=== PATIENT | female | born 1955 | race African-American/Black ===

== ENCOUNTER 2017-05-24 14:44 | Emergency (ER) | payer OTHER ==
[2017-05-24 15:48] LABS: #Lymphocytes 1.4 thou/uL (1.20-3.40); #Monocytes 0.4 thou/uL (0.11-0.59); #Neutrophils 8.4 thou/uL (1.40-6.50); %Basophils 0.4 % (0.0-1.0); %Eosinophils 0.1 % (0.0-10.0); %Lymphocytes 13.5 % (21.0-51.0); %Monocytes 4.1 % (0.0-10.0); %Neutrophils 81.8 % (42.0-75.0); Hemoglobin 13.4 g/dL (12.0-16.0); Mean Corpuscular HGB CONC 34.5 g/dL (32.0-36.0); Mean Corpuscular Hemoglobin 30.2 pg (27.0-31.0); Mean Corpuscular Volume 87.5 fl (81.0-99.0); Mean Platelet Volume 8.5 fL (7.4-10.4); Platelet Count 277 thou/uL (130-400); RBC Distribution Width 12.3 % (11.5-14.5); Red Blood Cell (RBC) Count 4.45 mill/uL (4.20-5.40); White Blood Cell (WBC) Count 10.3 thou/uL (4.8-10.8)
--- NOTE | 2017-05-24 16:04 | RAD ---
2 VIEWS CHEST: Date: 05/24/17 PROVIDED CLINICAL HISTORY: Fever. FINDINGS: Cardiac and mediastinal silhouette is within normal limits. Lungs appear clear. No pleural fluid or p neumothorax apparent. IMPRESSION: No evidence for an acute cardiopulmonary process. POS: [facility]
[2017-05-24 16:12] LABS: Bilirubin Negative (Negative); Blood, Urine Negative (Negative); Clarity CLEAR (Clear); Glucose, Urine (Dipstick) Negative (Negative); Leukocyte Negative (Negative); Nitrite Negative (Negative); Protein, Urine (Dipstick) Negative (Neg-Trace); Specific Gravity, Urine 1.007 (1.002-1.036)
[2017-05-24 16:12] LABS: ALT (SGPT) 147 U/L (8-55); AST (SGOT) 93 U/L (5-34); Albumin 3.9 g/dL (3.4-4.8); Alkaline Phosphatase 68 U/L (40-150); Anion Gap 12 mmol/L (10-20); BUN (Urea Nitrogen) 8 mg/dL (9.8-20.1); Bilirubin, Total 0.8 mg/dL (0.2-1.2); CK (CPK) 28 U/L (29-168); Calc. Creatinine Clearance 0 mL/min (70-130); Calcium 9.7 mg/dL (7.8-10.44); Carbon Dioxide 25 mmol/L (23-31); Chloride 100 mmol/L (98-107); Estimated GFR-MDRD Greater than 90; Globulin 3.5 g/dL (2.4-3.5); Glucose 183 mg/dL (80-115); Lipase 10 U/L (8-78); Potassium 3.4 mmol/L (3.5-5.1); Protein, Total 7.4 g/dL (6.0-8.3); Sodium 134 mmol/L (136-145)
[2017-05-24 16:22] LABS: CKMB 0.6 ng/mL (0-6.6); Troponin I Less than 0.010 ng/mL (< 0.028)
== END 2017-05-24 16:45 | disposition home or self-care (01) ==
LOC: ERS 14:44
DX: R50.9 Fever, unspecified (principal); Z86.73 Personal history of transient ischemic attack (TIA), and cerebral infarction without residual deficits; E11.9 Type 2 diabetes mellitus without complications; I10 Essential (primary) hypertension; Z87.891 Personal history of nicotine dependence; Z79.899 Other long term (current) drug therapy; Z79.4 Long term (current) use of insulin
CPT/HCPCS: 71046; 80053; 81003; 82553; 83605; 83690; 84484; 85025; 87086; 87804; 93005

== ENCOUNTER 2017-06-18 08:12 | Outpatient (CLI) | payer OTHER | END 2017-06-18 08:13 | disposition home or self-care (01) | LOC: BICULT 08:12 | PROVIDERS: ATTEND Family Medicine | DX: Z09 Encounter for follow-up examination after completed treatment for conditions other than malignant neoplasm (principal); Z86.19 Personal history of other infectious and parasitic diseases; K83.8 Other specified diseases of biliary tract; K82.8 Other specified diseases of gallbladder; E11.42 Type 2 diabetes mellitus with diabetic polyneuropathy; I10 Essential (primary) hypertension | CPT/HCPCS: 76700 ==

== ENCOUNTER 2017-07-14 08:15 | Outpatient (CLI) | payer OTHER ==
[2017-07-14 09:35] LABS: Estimated GFR-MDRD - POC Greater than 90
== END 2017-07-14 08:16 | disposition home or self-care (01) ==
LOC: BICMRI 08:15
PROVIDERS: ATTEND Family Medicine
DX: K83.8 Other specified diseases of biliary tract (principal); K82.8 Other specified diseases of gallbladder
CPT/HCPCS: 74183; 82565

== ENCOUNTER 2017-10-05 10:38 | Day surgery (SDC) | payer OTHER ==
[~2017-10-05 10:38] MED LIST: Glycopyrrolate 0.2 MG/ML 5 ML SYRINGE ONE; Lidocaine 1% PF 5 ML VIAL ONE; Ondansetron HCl/PF 4 MG/2 ML Vial ONE; PROPOFOL 200 MG/20 ML VIAL ONE
[2017-10-05] MEDS ORDERED: Iothalamate Meglumine 60% 50 ML VIAL FS ONE (12:32)
[2017-10-05] MEDS ORDERED: Midazolam HCl 2 mg/2 ml Vial ONE (13:21)
[2017-10-05] MEDS ORDERED: Fentanyl 100 MCG/2 ML VIAL ONE (13:22)
[2017-10-05] MEDS ORDERED: Indomethacin 50 MG SUPP ONE (13:23)
[2017-10-05] MEDS ORDERED: SUGAMMADEX SODIUM 500 MG/5 ML VIAL ONE (14:44)
[2017-10-05] MEDS ORDERED: Sodium Chloride 0.9% 10 ML ONE (14:55)
[2017-10-05] MEDS ORDERED: Promethazine HCl 25 MG/ML VIAL ONE (15:00)
--- NOTE | 2017-10-05 17:17 | OP ---
DATE OF PROCEDURE: 10/05/2017 GI ENDOSCOPY NOTE SURGEON: Devaughn Rojas M.D. SERVICE PLANNER SURGEON: None. PROCEDURE: Endoscopic retrograde cholangiopancreatography with biliary sphincterotomy and stone extr action. INDICATION: Choledocholithiasis based on ultrasound and MRCP imaging. MEDICATIONS: 1. See anesthesia record. 2. Indomethacin 100 mg per rectum. FINDINGS: After discussion of the risks, benefits and alternatives of the procedure, informed consen t was obtained and witnessed. Pre-endoscopic cardiopulmonary examination was satisfactory. Timeout was performed before sedation was achieved. Sedation was achieved with anesthesia assistance in the endoscopy unit. The patient was placed in the semi prone position on the fluoroscopy table, endotrac heally intubated and sedated. A Pentax adult side-viewing duodenum scope was advanced beyond the gifty th down the esophagus and beyond the stomach into the second portion of the duodenum. The ampulla wa s brought into view. The ampulla appeared normal. At this point, a triple lumen dome tip sphinctero tome and a 0.035 guidewire were used to selectively cannulate the common bile duct. The wire was pas sed up into the left intrahepatic system. Cholangiogram was then performed. This demonstrated some dilation of the common bile duct with a single approximately 8 mm stone free floating within the dila bruce bile duct. There were no other filling defects or abnormalities on the cholangiogram. A generou s biliary sphincterotomy was then performed. At this point, a wire exchange was performed exchanging the sphincterotome for a 12-15 mm extraction balloon. Multiple passes were made with the balloon fu lly inflated. In this fashion, I was able to successfully extract a single large common bile duct st one. Occlusion cholangiogram was then performed and showed no residual filling defects. One final p ass was made with the balloon fully inflated to sweep out excess contrast. The working apparatus was then completely withdrawn and the endoscope was withdrawn and the procedure was complete. There wer e no post-procedure subdiaphragmatic or retroperitoneal free air on fluoroscopic images. The patient tolerated the procedure well. There were no immediate post-procedure complications. IMPRESSION: 1. Choledocholithiasis, now status post successful biliary sphincterotomy and balloon extraction of single 8 mm common bile duct stone. 2. Otherwise, normal ERCP. RECOMMENDATIONS: 1. Discharged back to her facility. 2. Please call our office if there is any concern for procedural complication or post-ERCP pancreati tis. 3. Follow up in the GI clinic in 2-3 weeks with Physician Stallion Manager.
--- NOTE | 2017-10-05 17:52 | RAD ---
ERCP: Date: 10/05/17 HISTORY: Right upper quadrant pain. FINDINGS/IMPRESSION: Two spot fluoroscopic images from an ERCP demonstrate opacification of the common bile duct, hepatic ducts and some of their branches, without filling defects to suggest calculi. POS: [facility]
== END 2017-10-05 17:40 ==
LOC: SDC 10:38
PROVIDERS: ATTEND Internal Medicine
PROC: 0FC98ZZ Extirpation of Matter from Common Bile Duct, Via Natural or Artificial Opening Endoscopic (ICD-10-PCS; principal; 2017-10-05)
DX: K80.50 Calculus of bile duct without cholangitis or cholecystitis without obstruction (principal); Z88.5 Allergy status to narcotic agent; Z88.8 Allergy status to other drugs, medicaments and biological substances; Z79.899 Other long term (current) drug therapy
CPT/HCPCS: 36416; 74330; 96374; A4216; J2001; J2250; J2405; J2550; J2704; J3010; Q9961

== ENCOUNTER 2017-11-25 09:09 | Outpatient (CLI) | payer OTHER ==
--- NOTE | 2017-11-25 15:39 | MMO ---
BILATERAL SCREENING MAMMOGRAMS: Date: 11-25-17 History: 52-year-old female patient presenting for screening mammography. This will serve as the colin ent's baseline screening mammogram as no prior studies are available for comparison. FINDINGS: This study is interpreted with the assistance of computer aided detection. Scattered fibroglandular densities are seen in each breast. There are multiple scattered calcificatio ns in each breast which demonstrate similar appearance and characteristics likely related to scattere d benign appearing calcifications bilaterally. No definite suspicious grouping of microcalcifications are seen in either breast. There is a small round mass in the upper outer right breast with suggesti on of a small fatty hilum, most suggestive of an intramammary lymph node. No additional mass or archi tectural distortion is seen in either breast. IMPRESSION: BIRADS category 2 - benign findings. Routine annual mammographic screening is recommended. POS: [facility]
== END 2017-11-25 09:10 | disposition home or self-care (01) ==
LOC: SCSMAMMO 09:09
PROVIDERS: ATTEND Family Medicine
DX: Z12.31 Encounter for screening mammogram for malignant neoplasm of breast (principal)
CPT/HCPCS: 77067